=== PATIENT | female | born 1945 | race Asian ===

== ENCOUNTER 2017-05-20 12:42 | Emergency (ER) | payer MEDICARE, OTHER ==
[~2017-05-20] VITALS: Ht 160 cm; Wt 63.5 kg
[2017-05-20 12:50] VITALS: BP 168/87
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
[2017-05-20 15:24] VITALS: BP 158/77
--- NOTE | 2017-05-23 08:01 | Diagnostic Imaging Report ---
Indication: PAIN right hip and pelvic pain status post fall Technique: Noncontrast spiral acquisitions obtained through the pelvis. Multiplanar reconstructions generated. Total dose length product 317 mGycm. CTDIvol(s) 11 mGy. Dose reduction achieved using automated exposure control Comparison: Reference made to plain radiographs earlier the same day Findings: Small ossific densities are seen adjacent to the right acetabular lip, appear well-corticated, presumably represent old ununited ossification centers or there heterotopic ossification. Tiny ossific densities adjacent to the right greater trochanter probably reflect small traction spurs. No acute fractures. No dislocations. The joint spaces are preserved. The included pelvic viscera are unremarkable. Impression: No acute bony trauma. Findings as noted The CT scanner at [facility] is accredited by the [employer] and the scans are performed using protocols designed to limit radiation exposure to as low as reasonably achievable to attain images of sufficient resolution adequate for diagnostic evaluation.
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
== END 2017-05-20 15:24 | disposition home or self-care (01) ==
LOC: EDBD 12:42 → EMR 13:21
DX: S30.0XXA Contusion of lower back and pelvis, initial encounter (principal); M25.551 Pain in right hip; W10.9XXA Fall (on) (from) unspecified stairs and steps, initial encounter; Y92.9 Unspecified place or not applicable
CPT/HCPCS: 72192; 99283